=== PATIENT | female | born 1995 | race Caucasian/White ===

== ENCOUNTER 2018-06-04 19:58 | Inpatient (IN) ==
[2018-06-04] MEDS ORDERED: Oxytocin 30 Units/500ml Premix 30 UNITS/500 ML BAG IV.CONT PRN (20:57)
[2018-06-04] MEDS ORDERED: Sod Chloride 0.9% Inj 1,000 ML IV.CONT PRN (21:07)
[2018-06-04] MEDS ORDERED: Sodium Chlor 0.9% Inj 500 ML IV.SIG PRN (21:07)
[2018-06-04] MEDS ORDERED: fentaNYL Citrate Inj 100 MCG/2 ML Ampul IV.PUSH PRN ×2 (21:07)
[2018-06-04] MEDS ORDERED: Citric Acid/Sodium Citrate Liq 30 ML UDC PO SCH (21:15)
[2018-06-04 21:25] LABS: Baso % (Auto) 0.4 % (0.0-2.0); Eos # (Auto) 0.4 th/mm3 (0.0-0.4); Eos % (Auto) 4.7 % (0.0-4.0); Hematocrit 34.3 % (35.0-46.0); Hemoglobin 12.2 gm/dL (11.6-15.3); Lymph # (Auto) 2.1 th/mm3 (1.0-4.8); Lymph % (Auto) 24.4 % (9.0-44.0); Mean Corpuscular HGB Conc 35.6 % (32.0-36.0); Mean Corpuscular Hemoglobin 30.3 pg (27.0-34.0); Mean Platelet Volume 9.4 fL (7.0-11.0); Mono # (Auto) 0.7 th/mm3 (0.0-0.9); Mono % (Auto) 8.1 % (0.0-8.0); Neut # (Auto) 5.5 th/mm3 (1.8-7.7); Neut % (Auto) 62.4 % (16.0-70.0); Platelet Count 196 th/mm3 (150-450); Red Blood Count 4.03 mil/mm3 (4.00-5.30); Red Cell Distribution Width 13.3 % (11.6-17.2); White Blood Count 8.7 th/mm3 (4.0-11.0)
[2018-06-04 21:54] LABS: Bacteria,Urine Rare /hpf; Bilirubin,Urine Negative (Negative); Clarity,Urine Clear (Clear); Color,Urine Yellow (Yellw/Straw); Glucose,Urine (UA) Negative (Negative); Leukocyte Esterase,Urine Negative (Negative); Nitrite,Urine Negative (Negative); Specific Gravity,Urine 1.009 (1.002-1.035); Squamous Epithelial Cell,Urine 1 /hpf (0-5)
[2018-06-05] MEDS ORDERED: fentaNYL 2MCG-Bupiv 0.125% Epi 150 ML EPIDURAL ONE (02:28)
[2018-06-05] MEDS ORDERED: Lidocaine 2%/Epinephrine 1:200,000 PF Inj 20 ML Vial ONE (02:32)
[2018-06-05] MEDS ORDERED: fentaNYL 2MCG-Bupiv 0.125% Epi 150 ML EPIDURAL PRN (03:52)
[2018-06-05] MEDS ORDERED: fentaNYL Citrate Inj 100 MCG/2 ML Ampul EPIDURAL ONE (03:52)
[2018-06-05] MEDS ORDERED: Oxytocin 30 Units/500ml Premix 30 UNITS/500 ML BAG IV.CONT PRN (05:00)
[2018-06-05] MEDS ORDERED: Oxytocin 30 Units/500ml Premix 30 UNITS/500 ML BAG IV.SIG ONE ×2 (06:00→18:56)
[2018-06-05 07:04] LABS: Amphetamine Urine With Conf Neg (Neg); Benzodiazepine Urine With Conf Neg (Neg); Cannabinoid Urine With Conf Neg (Neg); Cocaine Urine With Conf Neg (Neg); Opiates Urine With Conf Neg (Neg)
--- NOTE | 2018-06-05 09:22 | P.HPOB ---
History of Present Illness Service: LABOR AND DELIVERY Primary Care Physician: No Primary Care Physician Chief Complaint: ADMITTED FOR INDUCTION History of Present Illness: PT , SEEN IN THE OFFICE 06/04/18 40 6/7 WEEKS SVE FT/50% ADMITTED FOR INDUCTION GBS NEGATIVE Weeks Gestation:: 41 Para: 0 : 1 Last menstrual period: 08/22/17 - Inpatient Certification I certify that the inpatient services were ordered in accordance with Medicare regulations governing the order. This includes certification that hospital inpatient services are reasonable and necessary and in the case of services not specified as inpatient-only under 42 CFR 419.22(n), that they are appropriately provided as inpatient services in accordance to with the 2-midnight benchmark under 43 CFR 412.3(e) Estimated Total Length of Stay (Days): 3 Plans for Post Hospital Care: Home Review of Systems All other systems reviewed negative except as stated in HPI PMFSH - History History Provided By: Medical Record - Medical / Surgical Hx Neg / Unobtainable Surgical History: No Previous Surgery - Medical History Medical History: Medical History (Last Updated 06/05/18 @ 09:12 by MANJU Lauren) Asthma - Social History I have reviewed the patient's Social History: Yes - Immunization History Hx Influenza Vaccine This Season: Yes Medications and Allergies Active Medications: Active Medications Citric Acid/Sodium Citrate (Sodium Citrate/Citric Acid Liq) 30 ml PO [employer] [facility] Stop: 06/08/18 21:14 Ephedrine Sulfate (Ephedrine/Ns Syringe) 10 mg IV.PUSH UNSCH PRN PRN Reason: SEE LABEL COMMENTS Stop: 06/06/18 03:52 Fentanyl Citrate (Fentanyl Inj) 50 mcg IV.PUSH Q1H PRN PRN Reason: Pain Scale 3 - 5 Fentanyl Citrate (Fentanyl Inj) 100 mcg IV.PUSH Q1H PRN PRN Reason: PAIN SCALE 6 TO 10 Lactated Ringer's (Lr 1000 Ml Inj) 1,000 mls @ 125 mls/hr IV.CONT .Q8H [facility] Last Admin: 06/04/18 21:10 Dose: 125 mls/hr Oxytocin (Pitocin 30 Units/Ns 500 Ml Premix) 30 units in 500 mls @ 2 mls/hr IV.CONT TITRATE PRN; Protocol PRN Reason: For induction of labor Lactated Ringer's (Lr 1000 Ml Inj) 1,000 mls @ 125 mls/hr IV.CONT .Q8H MYAH Last Admin: 06/05/18 07:23 Dose: Not Given Lactated Ringer's (Lr 1000 Ml Inj) 1,000 mls @ 3,000 mls/hr IV.SIG UNSCH PRN PRN Reason: compromise or epidural Sodium Chloride (Ns Inj) 500 mls @ 1,000 mls/hr IV.SIG UNSCH PRN PRN Reason: SEE LABEL COMMENTS Sodium Chloride (Ns Inj) 1,000 mls @ 100 mls/hr IV.CONT .Q10H PRN PRN Reason: SEE LABEL COMMENTS Fentanyl/Bupivacaine/Sodium Chlor (Fentanyl 2 Mcg-Bupiv 0.125% Epi) 150 mls @ 12 mls/hr EPIDURAL PRN PRN PRN Reason: for Labor Pain Lidocaine HCl (Xylocaine 1% Inj) 0.1 ml I-DERMAL PRN PRN PRN Reason: For IV start Stop: 06/07/18 21:06 Lidocaine HCl (Xylocaine 1% Inj) 10 ml INFILTRATN PRN PRN PRN Reason: For episiotomy repair Stop: 06/06/18 21:06 Mineral Oil (Muri-Lube Oil) 10 ml TOPICAL PRN PRN PRN Reason: PRN perineal massage Miscellaneous Information (Misc Information) 1 each OTHER UNSCH PRN PRN Reason: SEE LABEL COMMENTS Stop: 06/06/18 03:52 Miscellaneous Information (Misc Information) 1 each OTHER UNSCH PRN PRN Reason: SEE LABEL COMMENTS Stop: 06/06/18 03:52 Ondansetron HCl (Zofran Inj) 4 mg IV.PUSH Q6H PRN PRN Reason: NAUSEA OR VOMITING Sodium Chloride (Ns Flush) 2 ml IV.FLUSH PRN PRN PRN Reason: FLUSH AFTER USING IV ACCESS Zolpidem Tartrate (Ambien) 10 mg PO HS PRN PRN Reason: SLEEP Allergies Allergy/AdvReac Type Severity Reaction Status Date / Time No Known Allergies Allergy Verified 06/04/18 20:55 Exam Vital signs: Vital Signs 06/04/18 20:22 06/04/18 20:30 06/04/18 22:00 Temperature 98.7 F Pulse Rate 79 Respiratory Rate 18 18 Blood Pressure 118/74 06/04/18 22:36 06/04/18 23:00 06/05/18 00:00 Temperature 98.5 F Pulse Rate 88 Respiratory Rate 18 16 Blood Pressure 115/78 06/05/18 02:17 06/05/18 02:40 06/05/18 02:47 Temperature Pulse Rate 102 H Respiratory Rate 20 18 Blood Pressure 102/66 06/05/18 02:55 06/05/18 03:01 06/05/18 03:16 Temperature Pulse Rate 81 58 L Respiratory Rate Blood Pressure 124/73 95/31 L 06/05/18 03:20 06/05/18 03:46 06/05/18 05:46 Temperature Pulse Rate 77 64 62 Respiratory Rate Blood Pressure 114/68 117/59 L 06/05/18 06:00 06/05/18 06:01 06/05/18 06:16 Temperature Pulse Rate 88 Respiratory Rate 18 Blood Pressure 114/71 06/05/18 06:33 06/05/18 06:46 06/05/18 07:00 Temperature 98.4 F Pulse Rate 69 59 L 67 Respiratory Rate 20 Blood Pressure 118/93 H 125/75 129/73 06/05/18 07:15 06/05/18 07:30 06/05/18 07:31 Temperature Pulse Rate 68 66 Respiratory Rate 18 17 Blood Pressure 125/83 139/78 06/05/18 07:46 06/05/18 07:57 06/05/18 08:01 Temperature Pulse Rate 75 67 Respiratory Rate 18 Blood Pressure 136/79 112/50 L 06/05/18 08:15 06/05/18 08:55 Temperature Pulse Rate 56 L 60 Respiratory Rate Blood Pressure 115/70 110/72 Intake & Output 06/04/18 06/05/18 06/05/18 18:59 06:59 18:59 Weight 72.575 kg - Constitutional no acute distress - Routine HEENT Exam Head: Present: normocephalic Eye: Present: PERRL ENT: Present: mucous membranes moist - Routine Neck Exam Present: supple, full ROM - Routine Respiratory Exam Present: CTA bilaterally - Routine Cardiovascular Exam Present: RRR, S1, S2 - Routine Abdominal Exam Present: soft Comments: GRAVID - Routine Extremities Exam Present: normal capillary refill - Routine Skin Exam Present: intact - Routine Neurological Exam Present: alert, oriented X3 Results - Labs CBC & Chem 7: 06/04/18 20:45 Labs: Laboratory Results - last 24 hr 06/04/18 06/04/18 06/04/18 20:00 20:00 20:45 WBC 8.7 RBC 4.03 Hgb 12.2 Hct 34.3 L MCV 85.0 MCH 30.3 MCHC 35.6 RDW 13.3 Plt Count 196 MPV 9.4 Neut % (Auto) 62.4 Lymph % (Auto) 24.4 [place] % (Auto) 8.1 H Eos % (Auto) 4.7 H Baso % (Auto) 0.4 Neut # (Auto) 5.5 Lymph # (Auto) 2.1 [place] # (Auto) 0.7 Eos # (Auto) 0.4 Baso # (Auto) 0.0 WBC Differential . Differential Comment Auto diff final Urine Color Yellow Urine Clarity Clear Urine pH 7.0 Ur Specific Lamar 1.009 Urine Protein Negative Urine Glucose (UA) Negative Urine Ketones Negative Urine Occult Blood Small H Urine Nitrate Negative Urine Bilirubin Negative Urine Urobilinogen Less than 2 Ur Leukocyte Esterase Negative Urine RBC Less than 1 Urine WBC Less than 1 Ur Squamous Epith Cells 1 Urine Bacteria Rare H Micro UA Comment Culture not ind Ur Microscopic Review Not Reportable Urine Culture Comments Culture not ind Urine Opiates Screen Neg Ur Barbiturates Screen Neg Ur Amphetamine Screen Neg U Benzodiazepines Scrn Neg Urine Cocaine Screen Neg U Cannabinoids Screen Neg Blood Type 06/04/18 20:45 WBC RBC Hgb Hct MCV MCH MCHC RDW Plt Count MPV Neut % (Auto) Lymph % (Auto) [place] % (Auto) Eos % (Auto) Baso % (Auto) Neut # (Auto) Lymph # (Auto) [place] # (Auto) Eos # (Auto) Baso # (Auto) WBC Differential Differential Comment Urine Color Urine Clarity Urine pH Ur Specific Lam[place] Urine Protein Urine Glucose (UA) Urine Ketones Urine Occult Blood Urine Nitrate Urine Bilirubin Urine Urobilinogen Ur Leukocyte Esterase Urine RBC Urine WBC Ur Squamous Epith Cells Urine Bacteria Micro UA Comment Ur Microscopic Review Urine Culture Comments Urine Opiates Screen Ur Barbiturates Screen Ur Amphetamine Screen U Benzodiazepines Scrn Urine Cocaine Screen U Cannabinoids Screen Blood Type A Negative Group B Strep: Negative Caprini VTE Risk Assessment Caprini VTE Risk Assessment: No/Low Risk (score <= 1) Caprini Risk Assessment Model: Point Value = 1 Point Value = 2 Point Value = 3 Point Value = 5 Age 41-60 Minor surgery BMI > 25 kg/m2 Swollen legs Varicose veins or History of unexplained or recurrent spontaneous Oral contraceptives or hormone replacement Sepsis (< 1 month) Serious lung disease, including pneumonia (< 1 month) Abnormal pulmonary function Acute myocardial infarction Congestive heart failure (< 1 month) History of inflammatory bowel disease Medical patient at bed rest Age 61-74 Arthroscopic surgery Major open surgery (> 45 min) Laparoscopic surgery (> 45 min) Malignancy Confined to bed (> 72 hours) Immobilizing plaster cast Central venous access Age >= 75 History of VTE Family history of VTE Factor V Leiden Prothrombin [id number] Lupus anticoagulant Anticardiolipin antibodies Elevated serum homocysteine Heparin-induced thrombocytopenia Other congenital or acquired thrombophilia Stroke (< 1 month) Elective arthroplasty Hip, pelvis, or leg fracture Acute spinal cord injury (< 1 month) Prophylaxis Regimen: Total Risk Factor Score Risk Level Prophylaxis Regimen 0-1 Low Early ambulation 2 Moderate Order ONE of the following: *Sequential Compression Device (SCD) *Heparin 5000 units SQ BID 3-4 Higher Order ONE of the following medications: *Heparin 5000 units SQ TID *Enoxaparin/Lovenox 40 mg SQ daily (WT < 150 kg, CrCl > 30 mL/min) *Enoxaparin/Lovenox 30 mg SQ daily (WT < 150 kg, CrCl > 10-29 mL/min) *Enoxaparin/Lovenox 30 mg SQ BID (WT < 150 kg, CrCl > 30 mL/min) AND/OR *Sequential Compression Device (SCD) 5 or more Highest Order ONE of the following medications: *Heparin 5000 units SQ TID (Preferred with Epidurals) *Enoxaparin/Lovenox 40 mg SQ daily (WT < 150 kg, CrCl > 30 mL/min) *Enoxaparin/Lovenox 30 mg SQ daily (WT < 150 kg, CrCl > 10-29 mL/min) *Enoxaparin/Lovenox 30 mg SQ BID (WT < 150 kg, CrCl > 30 mL/min) AND *Sequential Compression Device (SCD) Assessment and Plan - Diagnosis (1) 41 weeks gestation of Code(s): Z3A.41 - 41 weeks gestation of Status: Acute Plan: ADMISSION 06/04 FOR CYTOTEC AROM/PITOCIN IN AM (2) Elective induction of labor planned Status: Acute Plan: 06/04 CYTOTEC INDUCTION AROM/PITOCIN IN AM - Plan 41 WEEKS GBS NEGATIVE A NEGATIVE, RHOGAM PP CYTOTEC INDUCTION 06/04/18 AROM/PITOCIN 06/05/18 PLANNING FOR Discharge Planning: DC HOME IN 2-3 DAYS POST DELIVERY - Attending Attestation DR BUTLER IN THIS AM FOR AROM, SVE 5CM
[2018-06-05] MEDS ORDERED: Bupivacaine PF 0.25% Inj 10 ML Vial ONE (13:52)
[2018-06-05] MEDS ORDERED: Ketorolac Inj 30 MG/ML (IVP) Vial IV.PUSH ONE (17:05)
[2018-06-05] MEDS ORDERED: Lidocaine 2%/Epinephrine 1:200,000 PF 10 ML SDV NERV BLOCK ONE (17:05)
[2018-06-05] MEDS ORDERED: Morphine Sulfate PF Inj 5 MG/10 ML Ampul ONE (17:23)
[2018-06-05 18:29] LABS: Cord Arterial Blood HCO3 25.9
[2018-06-05] MEDS ORDERED: Acetaminophen 325 MG Tablet PO PRN (18:56)
[2018-06-05] MEDS ORDERED: Simethicone 80 MG Chew Tablet PO PRN (18:56)
--- NOTE | 2018-06-05 19:12 | P.OP ---
- Preoperative Diagnosis (1) Failure to progress in labor, delivered, current hospitalization (2) 41 weeks gestation of - Postoperative Diagnosis (1) 41 weeks gestation of (2) Failure to progress in labor, delivered, current hospitalization Date of procedure: 06/05/18 Procedure: Primary low transverse section Anesthesia: epidural Surgeon: Cornell Steven MD Estimated blood loss (mL): 800 Operation and Findings: Complications urinary bladder was full at time of and the Hall catheter as she is needed to be removed and reinserted counts were correct Findings the bladder was full upon entering the abdomen the uterus fallopian tubes and ovaries were normal we had a normal viable male infant Apgars 7 and 9 weight was 9 pounds 3 ounces the baby's name was Sánchez. Procedure in detail patient was in labor and progressed to 8 cm And began to have a swollen anterior lip we gave her Benadryl and waited to see if she would progress to complete after 4 hours she remained to 8 cm and the lip was swelling more and It was developing and we decided at that time to proceed with a primary low transverse section for arrest of labor Patient was taken to the operating theater identified by name band and verbally she was given a dose of her epidural and prepped and draped in the usual sterile manner for section. The timeout was taken. A Pfannenstiel incision was made with the knife carried down to the fascia. The fascia was nicked bilaterally and the fascia was taken off the rectus muscle by blunt and sharp dissection. The rectus muscles were split and spread bluntly and we noticed at this time the urinary bladder poked out and was full of urine. To confirm this we took a 25-gauge needle and inserted into the bladder and certainly the urine was clear we tried flushing the Hall at this time however the bladder remained quite full. At this time we draped her again since frog- leg her legs and reinserted the Hall under sterile technique and got a little over 300 cc of urine out. At this time I could get into the peritoneal cavity going very far superior we entered the abdomen under direct vision without difficulty and extended the incision with care to avoid the urinary bladder. The bladder blade was placed and the bladder flap was created in the usual fashion pushing the bladder out of harm's way. The incision was made along the lower uterine segment which was well-developed and taken down in the midline until the uterine cavity was entered incision was extended with the surgeon's fingers. The vertex was grasped and it was very deep in the pelvis and using a suction device the vertex was delivered with gentle fundal pressure. Moderate It was also noted that the baby was LOP and there was moderate caput. At this point the hypopharynx and nasopharynx were suctioned and the remainder the delivered we waited for the cord to stop pulsing 45 seconds and doubly clamped the cord and cut it the baby at first was a little bit shocky. Resuscitation efforts and we have undertaken and the baby was taken to the care team that was present for delivery. At this point the output cord blood was obtained a cord gas was obtained and the placenta was delivered manually. The uterus was delivered from the abdomen curettage twice with a wet lap and the uterine incision was repaired with 0 Vicryl in a running fashion in 2 layers the second layer imbricating the first there was some bleeding around the left side and this was cleaned up without any difficulty the cul-de-sac and gutters were cleaned of blood and debris the uterus was gently delivered back into the abdomen the bladder blade was again placed and we inspected the uterine incision which was hemostatic. The rectus muscles were then reapproximated with 0 Vicryl in a running fashion. The fascia was repaired with a running 0 Vicryl. The subcu was irrigated and small bleeders coagulated and the subcu was reapproximated with 3-0 Vicryl in a running fashion skin was reapproximated with a 4-0 Monocryl in a subcuticular fashion with excellent results a pressure dressing was applied she tolerated the procedure well although she did need some extra medicine after the baby was delivered to keep her comfortable.
[2018-06-05] MEDS ORDERED: Zolpidem Tartrate 5 MG Tablet PO PRN (21:00)
[2018-06-05] MEDS ORDERED: Oxytocin 30 Units/500ml Premix 30 UNITS/500 ML BAG IV.SIG PRN (23:57)
[2018-06-06] MEDS ORDERED: ceFAZolin Inj 1 GM in Sodium Chlor 0.9% Inj 100 ML IV.SIG SCH (01:00)
[2018-06-06 05:34] LABS: Baso % (Auto) 0.2 % (0.0-2.0); Eos # (Auto) 0.1 th/mm3 (0.0-0.4); Hematocrit 26.6 % (35.0-46.0); Hemoglobin 9.4 gm/dL (11.6-15.3); Lymph # (Auto) 1.8 th/mm3 (1.0-4.8); Lymph % (Auto) 12.8 % (9.0-44.0); Mean Corpuscular HGB Conc 35.1 % (32.0-36.0); Mean Corpuscular Hemoglobin 30.4 pg (27.0-34.0); Mean Corpuscular Volume 86.5 fL (80.0-100.0); Mean Platelet Volume 9.6 fL (7.0-11.0); Mono # (Auto) 0.8 th/mm3 (0.0-0.9); Mono % (Auto) 6.1 % (0.0-8.0); Neut % (Auto) 79.9 % (16.0-70.0); Platelet Count 168 th/mm3 (150-450); Red Blood Count 3.08 mil/mm3 (4.00-5.30); Red Cell Distribution Width 13.6 % (11.6-17.2); White Blood Count 13.8 th/mm3 (4.0-11.0)
[2018-06-06] MEDS ORDERED: ceFAZolin 1 GM Premix Inj 1 GM/50 ML PIGGYBACK IV.SIG SCH (09:00)
[2018-06-06] MEDS ORDERED: Measles/Mumps/Rubella Vaccine Inj 0.5 ML Vial SQ ONE (16:00)
[2018-06-06] MEDS ORDERED: Diphtheria/Tetanus/Pertussis Vaccine Inj 0.5 ML Syringe IM ONE (16:00)
--- NOTE | 2018-06-06 16:36 | P.PNOB ---
Subjective Post op day: 1 Objective Vital Signs/I&O: Vital Signs 06/05/18 16:35 06/05/18 16:40 06/05/18 16:50 Temperature Pulse Rate 70 99 H 96 H Respiratory Rate Blood Pressure 110/66 121/74 06/05/18 18:55 06/05/18 19:09 06/05/18 19:10 Temperature 97.5 F L 97.9 F Pulse Rate 89 100 H Respiratory Rate 15 16 Blood Pressure 112/65 113/61 06/05/18 19:24 06/05/18 19:25 06/05/18 19:35 Temperature 97.5 F L Pulse Rate 79 77 Respiratory Rate 16 16 Blood Pressure 128/73 123/66 06/05/18 19:40 06/05/18 19:47 06/05/18 19:48 Temperature 97.7 F Pulse Rate 79 Respiratory Rate 16 Blood Pressure 118/66 06/05/18 20:01 06/06/18 01:00 06/06/18 06:00 Temperature 97.7 F 97.8 F 97.9 F Pulse Rate 69 78 80 Respiratory Rate 17 18 18 Blood Pressure 116/69 107/69 98/59 L 06/06/18 08:00 Temperature 98.4 F Pulse Rate 78 Respiratory Rate 18 Blood Pressure 117/62 Result Diagrams: 06/06/18 04:43 Objective Remarks: GENERAL: Well-nourished, well-developed patient. CARDIOVASCULAR: Regular rate and rhythm without murmurs, gallops, or rubs. RESPIRATORY: Breath sounds equal bilaterally. No accessory muscle use. ABDOMEN/GI: Abdomen soft, non-tender, bowel sounds present. Incision: dressing, Clean, dry and intact. Fundus: Firm, non-tender at umbilicus. GENITOURINARY: Light to moderate bleeding. EXTREMITIES: No cyanosis or edema, non-tender, without signs of DVT. Medications and IVs: Active Medications Acetaminophen (Tylenol) 650 mg PO Q6H PRN PRN Reason: PAIN SCALE 1 TO 2 Diphenhydramine HCl (Benadryl) 25 mg PO Q4H PRN PRN Reason: ITCHING Last Admin: 06/06/18 12:46 Dose: 25 mg Fentanyl/Bupivacaine/Sodium Chlor (Fentanyl 2 Mcg-Bupiv 0.125% Epi) 150 mls @ 12 mls/hr EPIDURAL PRN PRN PRN Reason: for Labor Pain Lactated Ringer's (Lr 1000 Ml Inj) 1,000 mls @ 100 mls/hr IV.CONT .Q10H [facility] Stop: 06/06/18 19:56 Last Admin: 06/05/18 21:00 Dose: 100 mls/hr Oxytocin (Pitocin 30 Units/Ns 500 Ml Premix) 30 units in 500 mls @ 100 mls/hr IV.SIG UNSCH PRN PRN Reason: Heavy bleeding Ibuprofen (Motrin) 800 mg PO Q8H PRN PRN Reason: cramping Last Admin: 06/06/18 08:27 Dose: 800 mg Ondansetron HCl (Zofran Inj) 4 mg IV.PUSH Q6H PRN PRN Reason: NAUSEA OR VOMITING Oxycodone/Acetaminophen (Percocet 5/325 Mg) 1 tab PO Q4H PRN PRN Reason: PAIN SCALE 3 TO 5 Last Admin: 06/06/18 02:52 Dose: 1 tab Oxycodone/Acetaminophen (Percocet 5/325 Mg) 2 tab PO Q4H PRN PRN Reason: PAIN SCALE 6 TO 10 Last Admin: 06/06/18 12:35 Dose: 2 tab Senna/Docusate Sodium (Billie-Colace) 2 tab PO Q12H PRN PRN Reason: CONSTIPATION Simethicone (Mylicon Chew) 80 mg PO QID PRN PRN Reason: FLATULENCE Sodium Chloride (Ns Flush) 2 ml IV.FLUSH BID MYAH Last Admin: 06/06/18 08:26 Dose: 2 ml Sodium Chloride (Ns Flush) 2 ml IV.FLUSH PRN PRN PRN Reason: FLUSH AFTER USING IV ACCESS Zolpidem Tartrate (Ambien) 5 mg PO HS PRN PRN Reason: INSOMNIA Assessment and Plan - Diagnosis (1) 41 weeks gestation of Code(s): Z3A.41 - 41 weeks gestation of Status: Resolved Plan: ADMISSION 06/04 FOR CYTOTEC AROM/PITOCIN IN AM (2) Elective induction of labor planned Status: Resolved Plan: 06/04 CYTOTEC INDUCTION AROM/PITOCIN IN AM (3) Status post Code(s): Z98.891 - History of uterine scar from previous surgery Status: Acute Plan: routine post op care (4) Anemia Code(s): D64.9 - Anemia, unspecified Status: Acute Plan: will treat with Venofer - Plan POD #1 pt doing well pain well managed with oral pain medication has not voided since [place] removed encourage ambulation and shower today anemia, will treat with IV Venofer routine Post op care \ Rh negative will give rhogam Discharge Planning: DC HOME IN 2 days
[2018-06-06] MEDS: Iron Sucrose Complex Inj 200 MG in Sodium Chlor 0.9% Inj 100 ML IV.SIG SCH (17:26)
[2018-06-06] MEDS: Senna/Docusate Sodium 8.6/50 MG Tablet PO PRN (20:13)
[2018-06-07] MEDS: Senna/Docusate Sodium 8.6/50 MG Tablet PO PRN ×2 (09:15→21:07)
[2018-06-07] MEDS: Iron Sucrose Complex Inj 200 MG in Sodium Chlor 0.9% Inj 100 ML IV.SIG SCH (09:16)
--- NOTE | 2018-06-07 09:28 | P.PNOB ---
Subjective Post op day: 2 Objective Vital Signs/I&O: Vital Signs 06/06/18 20:20 06/07/18 07:40 Temperature 98.6 F 98.1 F Pulse Rate 79 87 Respiratory Rate 20 16 Blood Pressure 132/70 115/69 Intake & Output 06/06/18 06/07/18 06/07/18 18:59 06:59 18:59 Intake Total 111 / 111 Balance 111 / 111 Intake: IV 110 / 110 Venofer Inj 200 MG In NS Inj 110 / 110 100 ML @ 110 mls/hr IV.SIG DAILY MYAH Rx#:[id number] Intake (Blood Product) Amt Rho(D) Immune Globulin Unit [id number] Result Diagrams: 06/06/18 04:43 Objective Remarks: GENERAL: Well-nourished, well-developed patient. CARDIOVASCULAR: Regular rate and rhythm without murmurs, gallops, or rubs. RESPIRATORY: Breath sounds equal bilaterally. No accessory muscle use. ABDOMEN/GI: Abdomen soft, non-tender, bowel sounds present. Incision: Clean, dry and intact. Fundus: Firm, non-tender at umbilicus. GENITOURINARY: Light to moderate bleeding. EXTREMITIES: No cyanosis or edema, non-tender, without signs of DVT. Medications and IVs: Active Medications Acetaminophen (Tylenol) 650 mg PO Q6H PRN PRN Reason: PAIN SCALE 1 TO 2 Diphenhydramine HCl (Benadryl) 25 mg PO Q4H PRN PRN Reason: ITCHING Last Admin: 06/06/18 12:46 Dose: 25 mg Fentanyl/Bupivacaine/Sodium Chlor (Fentanyl 2 Mcg-Bupiv 0.125% Epi) 150 mls @ 12 mls/hr EPIDURAL PRN PRN PRN Reason: for Labor Pain Oxytocin (Pitocin 30 Units/Ns 500 Ml Premix) 30 units in 500 mls @ 100 mls/hr IV.SIG UNSCH PRN PRN Reason: Heavy bleeding Iron Sucrose 200 mg/ Sodium (Chloride) 110 mls @ 110 mls/hr IV.SIG DAILY MYAH Stop: 06/08/18 09:59 Last Admin: 06/07/18 09:16 Dose: 110 mls/hr Ibuprofen (Motrin) 800 mg PO Q8H PRN PRN Reason: cramping Last Admin: 06/07/18 09:15 Dose: 800 mg Ondansetron HCl (Zofran Inj) 4 mg IV.PUSH Q6H PRN PRN Reason: NAUSEA OR VOMITING Oxycodone/Acetaminophen (Percocet 5/325 Mg) 1 tab PO Q4H PRN PRN Reason: PAIN SCALE 3 TO 5 Last Admin: 06/06/18 02:52 Dose: 1 tab Oxycodone/Acetaminophen (Percocet 5/325 Mg) 2 tab PO Q4H PRN PRN Reason: PAIN SCALE 6 TO 10 Last Admin: 06/07/18 06:18 Dose: 2 tab Senna/Docusate Sodium (Billie-Colace) 2 tab PO Q12H PRN PRN Reason: CONSTIPATION Last Admin: 06/07/18 09:15 Dose: 2 tab Simethicone (Mylicon Chew) 80 mg PO QID PRN PRN Reason: FLATULENCE Last Admin: 06/06/18 22:12 Dose: 80 mg Sodium Chloride (Ns Flush) 2 ml IV.FLUSH BID MYAH Last Admin: 06/06/18 22:08 Dose: 2 ml Sodium Chloride (Ns Flush) 2 ml IV.FLUSH PRN PRN PRN Reason: FLUSH AFTER USING IV ACCESS Last Admin: 06/07/18 09:16 Dose: 2 ml Zolpidem Tartrate (Ambien) 5 mg PO HS PRN PRN Reason: INSOMNIA Assessment and Plan - Diagnosis (1) Status post Code(s): Z98.891 - History of uterine scar from previous surgery Status: Acute Plan: routine post op care - Plan POD #2 pt doing well pain well managed with oral pain medication anemia, will treat with IV Venofer bonding with routine Post op care Rh negative will give rhogam Discharge Planning: DC HOME tomorrow
--- NOTE | 2018-06-07 09:34 | P.DS ---
Date of admission: 06/04/18 19:58 Primary care physician: Brenda Primary Care Physician Attending physician on discharge: Cornell Steven Anticipated date of discharge: 06/08/18 Brief History from admission: PT , SEEN IN THE OFFICE 06/04/18 40 6/7 WEEKS SVE FT/50% ADMITTED FOR INDUCTION GBS NEGATIVE DS: Diagnosis - Discharge Diagnosis (1) Status post Status: Acute DS: Medications - Discharge Medications Prescriptions: ibuprofen 800 mg PO Q8H PRN #30 tab PRN Reason: cramping oxycodone-acetaminophen 1 tab PO Q4H PRN #24 tab PRN Reason: Pain DS: Summary Hospital Course: pt admitted for induction of labor at 41 weeks cytotec/arom/pitocin failure to progress primary section anemia treated with IV Venofer routine post op care - Time Spent with Patient Total time spent providing and/or coordinating discharge services: Less than 30 minutes Exam Vital signs: Vital Signs 06/06/18 20:20 06/07/18 07:40 Temperature 98.6 F 98.1 F Pulse Rate 79 87 Respiratory Rate 20 16 Blood Pressure 132/70 115/69 Intake & Output 06/06/18 06/07/18 06/07/18 18:59 06:59 18:59 Intake Total 111 / 111 Balance 111 / 111 Intake: IV 110 / 110 Venofer Inj 200 MG In NS Inj 110 / 110 100 ML @ 110 mls/hr IV.SIG DAILY MYAH Rx#:[id number] Intake (Blood Product) Amt Rho(D) Immune Globulin Unit [id number] Narrative: see po note Results Procedures completed during hospitalization: primary low transverse c section Labs on day of discharge: Labs from last 24 hours 06/06/18 02:04 Blood Type A Negative Ab Screen Tube Method Negative Blood Bank Comment Discharge Plan - Discharge Disposition Patient Disposition: 01 Discharge Home - Discharge Condition Condition: Good - Discharge Order Discharge Orders: Discharge Order (Routine); Ordered 06/08/18 Ordered By: Palak Velazquez GIS GEOGRAPHER Clear for Discharge (Routine); Ordered 06/08/18 Ordered By: Palak Velazquez - Discharge Details Anticipated Discharge Date: 06/08/18 Discharge Comment: RX for motrin and percocet hand written by Dr Steven - Physicians Team Primary Care Provider: Primary Care Physici,Brenda Attending Provider: Cornell Steven - Rxs /Orders / Referrals /Forms Prescriptions: New ibuprofen 800 mg Tablet 800 mg PO Q8H PRN (Reason: cramping) Qty: 30 RF: 1 oxycodone-acetaminophen 5-325 mg Tablet 1 tab PO Q4H PRN (Reason: Pain) Qty: 24 RF: 0 Continue PNV #[id number] 30 mg iron-10 mg iron-1 mg Capsule 1 tab PO DAILY Referrals: Primary Care Brenda Zhu [Primary Care Provider] - See Instructions Cornell Steven MD [Physician] - See Instructions (call to be seen in one week) - Discharge Instructions Patient Printed Instructions: Preeclampsia and Eclampsia After Delivery (GEN) Additional Instructions: mother baby packet given. - Post Discharge Care Plan Care Plan Goals: Discharge Care Plan Goals After Section Congratulations on your new baby! We want your recovery to be brito and trouble free. You had a section, or . During the , your baby was delivered through an incision in your abdomen and uterus. Full recovery after a can take time. Its important to take care of yourself for your own sake and because your new baby needs you. Here are some guidelines to follow at home. Incision care: Here's how to take care of your incision: * Shower as needed. Pat your incision dry. * Watch your incision for signs of infection, like more redness or drainage. * Hold a pillow against the incision when you laugh or cough and when you get up from a lying or sitting position. * Remember, it can take as long as 6 weeks for your incision to heal. Diet and Activity: Here are some suggestions: * Dont try to take care of anyone other than your baby and yourself. * Remember, the more active you are, the more likely you are to have an increase in your bleeding. * Get lots of rest. Take naps when the is napping. * Increase your activities bit by bit. * Plan your activities so that you dont have to go up or down stairs more than needed. * Do postsurgical deep breathing and coughing exercises. Follow your physician' s instructions. * Dont lift anything heavier than your baby until your physician tells you it s OK. * Dont drive when you are on pain medications. * Dont have sexual intercourse until after youve had a checkup with your physician and you have decided on a control method. * Allow others to do things for you. Don't hesitate to ask for help. If you are : * Ask before you take any medicine. * If you leak milk, it will help to nurse right before the activity. * Talk to your healthcare provider about alcohol, if you choose to drink. * When youre sick, check with your physician if the medications would impact the breast feeding * Ask your physician before taking any prescription or over-the- counter medicines, herbs, or supplements. * Ask your physician what to use for prevention while you are nursing. Balancing the Blues: Recognize your need to talk, to feel protected, to have private time. Allow yourself to cry, to sit, to think. Ask for help when you need it, and accept help when its offered. Knowing your needs is not a weakness. Share your thoughts with your partner. Or chicken picker the phone and call a friend, your mother , a sister, or an aunt. Rest, eat right, and get some light exercise. The mind feels best when the body feels good. When to Call your Physician: * Fever of 100.5F or higher. * Redness, pain, or drainage at your incision site * Bleeding that requires a new sanitary pad every hour * Severe pain in the abdomen * Pain or urgency with urination * Foul odor from vaginal discharge * Trouble urinating or emptying your bladder * No bowel movement within 1 week after the of your baby * Swollen, red, painful area in the calf/leg * Appearance of rash or hives * Sore, red, painful area on the breasts that may come with flu-like symptoms * Feelings of anxiety, panic, and/or depression Signs of Depression include: You dont want to be with the baby. Your symptoms are not getting better, and youre getting more upset. You have no interest in eating or are not able to sleep. You think you may harm yourself or the baby. The Depression After Delivery hotline (211-469-3097) may also be helpful. Follow-Up: * Keep your appointments as scheduled. * If your symptoms worsen call your OB Physician, or go to an Urgent Care Center or Emergency Room. * Smoking is Dangerous to your health. Avoid second hand smoke. * Call the 24-hour crisis hotline for domestic abuse at Call 911: Call 911 right away if you have: * Sudden onset of chest pain that is not relieved by medications. * Shortness of breath * Severe Depression /Thoughts of harm to self and others
[2018-06-07] MEDS ORDERED: diphenhydrAMINE 2%/Zinc Cream 30 GM Tube TOPICAL PRN (17:00)
[2018-06-07 20:26] VITALS: RESP 18
[2018-06-08] MEDS ORDERED: Diphtheria/Tetanus/Pertussis Vaccine Inj 0.5 ML Syringe IM ONE (03:00)
[2018-06-08] MEDS: Senna/Docusate Sodium 8.6/50 MG Tablet PO PRN (07:53)
[2018-06-08 08:11] VITALS: BP 118/69; PULSE 79; TEMP 98
[2018-06-08] MEDS: Iron Sucrose Complex Inj 200 MG in Sodium Chlor 0.9% Inj 100 ML IV.SIG SCH (09:18)
== END 2018-06-08 16:40 | disposition home or self-care (01) | DRG 788 ==
LOC: H2E 19:58 → H1EA 06-05 20:23
PROVIDERS: ADMIT Obstetrics & Gynecology; ATTEND Obstetrics & Gynecology
CPT/HCPCS: 59025; 80101; 80301; 80307; 81001; 82805; 85025; 86850; 86900; 86901; 90384; 90715; G0431; G0479; G0481; G0483; J0131; J0690; J1200; J1756; J1885; J2274; J2405; J2590; J2704; J2790; J7120